=== PATIENT | male | born 1985 | race Caucasian/White ===

== ENCOUNTER 2017-08-23 10:27 | Emergency (ER) | payer SELFPAY ==
--- NOTE | 2017-08-23 11:42 | RAD ---
RADIOGRAPH RIGHT ANKLE 3 VIEWS: Date: 08/23/17 HISTORY: 31-year-old male with persistent post-traumatic right ankle pain after injury 2-3 weeks ago. COMPARISON: No prior imaging studies of the right ankle. FINDINGS: There is a joint effusion. The ankle mortise is symmetrical. No fracture lucency is visualized. Ther e is a 7 x 6 mm well circumscribed ossific fragment at the lateral inferior aspect of the ankle mort ise, overlapping the medial aspect of the distal portion of the lateral malleolus. This is could be an accessory ossicle, but its location is more superior than would be expected for such. It is less likely to be a subacute or old chip fracture, or avulsion fracture that has been displaced. Slightly superior to that, there is a nonspecific tiny, 0.3 x 0.1 cm, calcific densityNo high grade degenera tive changes. IMPRESSION: 1. Right ankle joint effusion. 2. Small ossific fragment at the inferolateral aspect of the ankle mortise. See above comments. 3. Consider noncontrast CT of the ankle if the pain is lateral. POS: SAMANTHA
== END 2017-08-23 12:36 | disposition home or self-care (01) ==
LOC: ERS 10:27
DX: M25.571 Pain in right ankle and joints of right foot (principal); F17.210 Nicotine dependence, cigarettes, uncomplicated

== ENCOUNTER 2020-07-25 18:01 | Emergency (ER) | payer SELFPAY ==
[2020-07-25] MEDS ORDERED: Diazepam 5 MG TAB ONE (18:34)
[2020-07-25] MEDS ORDERED: Diazepam 10 MG/2 ML SYRINGE ONE (18:36)
[2020-07-25 19:08] LABS: ALT (SGPT) 102 U/L (8-55); AST (SGOT) 112 U/L (5-34); Albumin 4.5 g/dL (3.5-5.0); Alkaline Phosphatase 86 U/L (40-110); Anion Gap 24 mmol/L (10-20); BUN (Urea Nitrogen) 5 mg/dL (8.9-20.6); Bilirubin, Total 0.9 mg/dL (0.2-1.2); Calc. Creatinine Clearance 0 mL/min (70-130); Calcium 8.9 mg/dL (7.8-10.44); Carbon Dioxide 13 mmol/L (22-29); Chloride 88 mmol/L (98-107); Estimated GFR-MDRD Greater than 90; Globulin 3.3 g/dL (2.4-3.5); Glucose 95 mg/dL (70-105); Lipase 19 U/L (8-78); Potassium 3.5 mmol/L (3.5-5.1); Protein, Total 7.8 g/dL (6.0-8.3); Sodium 121 mmol/L (136-145)
[2020-07-25 19:09] LABS: Acetaminophen Less than 6.0 mcg/mL (10.0-30.0); Alcohol Less than 10 mg/dL (Less than 10); Salicylate Less than 8.0 mg/dL (15.0-30.0)
[2020-07-25 19:51] LABS: #Eosinphils 0.1 thou/uL (0.0-0.7); #Lymphocytes 1.2 thou/uL (1.20-3.40); #Neutrophils 7.4 thou/uL (1.40-6.50); %Basophils 0.5 % (0.0-1.0); %Eosinophils 0.6 % (0.0-10.0); %Lymphocytes 12.3 % (21.0-51.0); %Monocytes 9.9 % (0.0-10.0); %Neutrophils 76.8 % (42.0-75.0); Hemoglobin 13.8 g/dL (14.0-18.0); Mean Corpuscular HGB CONC 34.8 g/dL (32.0-36.0); Mean Corpuscular Hemoglobin 33.6 pg (27.0-31.0); Mean Corpuscular Volume 96.5 fL (78.0-98.0); Mean Platelet Volume 6.1 fL (7.4-10.4); Platelet Count 203 thou/uL (130-400); RBC Distribution Width 11.2 % (11.5-14.5); Red Blood Cell (RBC) Count 4.11 mill/uL (4.70-6.10); White Blood Cell (WBC) Count 9.6 thou/uL (4.8-10.8)
--- NOTE | 2020-07-27 12:56 | EKG ---
Test Reason : Blood Pressure : / mmHG Vent. Rate : 118 BPM Atrial Rate : 118 BPM P-R Int : 150 ms QRS Dur : 074 ms QT Int : 326 ms P-R-T Axes : 057 015 019 degrees QTc Int : 456 ms Sinus tachycardia Septal infarct , age undetermined Abnormal ECG Confirmed by COLIN GALAN ([id number]), school photograph editor ELIER PEREZ ([id number]) on 07/27/2020 12:56:21 PM Referred By: Confirmed By:COLIN Coles
== END 2020-07-25 19:36 | disposition left against medical advice (07) ==
LOC: ERS 18:01
DX: F10.239 Alcohol dependence with withdrawal, unspecified (principal); R56.9 Unspecified convulsions; R29.2 Abnormal reflex; E87.1 Hypo-osmolality and hyponatremia; R00.0 Tachycardia, unspecified; F41.9 Anxiety disorder, unspecified; F17.210 Nicotine dependence, cigarettes, uncomplicated; Z79.899 Other long term (current) drug therapy; Y90.0 Blood alcohol level of less than 20 mg/100 ml
CPT/HCPCS: 80053; 80307; 83690; 84484; 85025; 93005; 96361; 96374; J3360

== ENCOUNTER 2024-07-21 07:57 | Inpatient (IN) | payer OTHER, SELFPAY ==
[2024-07-21] MEDS ORDERED: Lidocaine 1% w/Epinephrine 1:100K 20 ML VIAL ONE (09:11)
[2024-07-21 10:06] LABS: ALT (SGPT) 61 U/L (8-55); AST (SGOT) 85 U/L (5-34); Alkaline Phosphatase 84 U/L (40-110); Anion Gap 20 mmol/L (10-20); BUN (Urea Nitrogen) 13 mg/dL (8.9-20.6); Bilirubin, Total 0.8 mg/dL (0.2-1.2); Calc. Creatinine Clearance 0 mL/min (70-130); Calcium 8.3 mg/dL (7.8-10.44); Carbon Dioxide 14 mmol/L (22-29); Chloride 74 mmol/L (98-107); Estimated GFR 128; Globulin 3.4 g/dL (2.4-3.5); Glucose 119 mg/dL (70-105); Potassium 3.4 mmol/L (3.5-5.1); Protein, Total 7.4 g/dL (6.0-8.3); Sodium 105 mmol/L (136-145)
[2024-07-21] MEDS ORDERED: Bacitracin 1 PK ONE (10:06)
[2024-07-21 10:48] LABS: #Basophils 0.03 10x3/uL (0.0-0.2); #Eosinphils Less than 0.03 10x3/uL (0.0-0.7); %Basophils 0.2 % (0.0-1.0); %Eosinophils 0.1 % (0.0-10.0); %Lymphocytes 5.3 % (21.0-51.0); %Monocytes 7.4 % (0.0-10.0); %Neutrophils 85.6 % (42.0-75.0); Hematocrit 34.4 % (42.0-52.0); Hemoglobin 13.4 g/dL (14.0-18.0); Mean Corpuscular Hemoglobin 32.6 pg (27.0-31.0); Mean Corpuscular Volume 83.7 fL (78.0-98.0); Mean Platelet Volume 9.2 fL (7.4-10.4); Platelet Count 219 10x3/uL (130-400); Red Blood Cell (RBC) Count 4.11 mill/uL (4.70-6.10)
[2024-07-21 11:06] LABS: Bacteria/HPF None Seen HPF (None Seen); Bilirubin Negative (Negative); Blood, Urine Negative (Negative); CAUTI Indications for Culture Alt mental st,lethar; Clarity Clear (Clear); Glucose, Urine (Dipstick) Normal (Negative); Ketone, Urine 60 mg/dL (Negative); Leukocyte Negative Leu/uL (Negative); Nitrite Negative (Negative); Protein, Urine (Dipstick) Negative (Neg-Trace); RBC/HPF None Seen HPF (0-3); Specific Gravity, Urine 1.043 (1.002-1.036); Squamous Epithelial 0-3 HPF (0-3); Urobilinogen Normal mg/dL (Less than 2); WBC/HPF 0-3 HPF (0-3)
[2024-07-21 11:09] LABS: Urine Culture Reflex No No
[2024-07-21] MEDS ORDERED: Lorazepam 2 MG/ML VIAL IM PRN (11:38)
[2024-07-21] MEDS ORDERED: Bisacodyl 5 MG TAB PO PRN (11:38)
[2024-07-21] MEDS ORDERED: Ondansetron ODT 4 MG TAB PO PRN ×2 (11:38)
[2024-07-21] MEDS ORDERED: Electrolyte Replacement Protocol 1 EACH FS SCH (11:45)
[2024-07-21 13:13] LABS: ALT (SGPT) 59 U/L (8-55); AST (SGOT) 81 U/L (5-34); Alkaline Phosphatase 82 U/L (40-110); Anion Gap 20 mmol/L (10-20); BUN (Urea Nitrogen) 11 mg/dL (8.9-20.6); Bilirubin, Direct 0.3 mg/dL (0.1-0.3); Bilirubin, Total 0.8 mg/dL (0.2-1.2); Calc. Creatinine Clearance 0 mL/min (70-130); Calcium 8.6 mg/dL (7.8-10.44); Carbon Dioxide 14 mmol/L (22-29); Chloride 77 mmol/L (98-107); Estimated GFR 125; Globulin 3.5 g/dL (2.4-3.5); Glucose 103 mg/dL (70-105); Magnesium 1.6 mg/dL (1.6-2.6); Phosphorus 2.3 mg/dL (2.3-4.7); Potassium 3.6 mmol/L (3.5-5.1); Protein, Total 7.5 g/dL (6.0-8.3); Sodium 107 mmol/L (136-145)
[2024-07-21] MEDS ORDERED: Potassium Chloride 20 MEQ TAB ONE ×2 (13:18→13:22)
[2024-07-21] MEDS ORDERED: Thiamine HCl 200 MG/2 ML VIAL ONE (13:19)
[2024-07-21] MEDS ORDERED: Lorazepam 1 MG TAB ONE (13:19)
[2024-07-21] MEDS ORDERED: Lidocaine 4% Patch ONE (13:20)
[2024-07-21] MEDS: Lorazepam 1 MG TAB PO SCH (13:31)
[2024-07-21] MEDS: Thiamine HCl 200 MG/2 ML VIAL SLOW IVP SCH (13:31)
[2024-07-21] MEDS: Lidocaine 4% Patch TD SCH (13:32)
[2024-07-21] MEDS: Potassium Chloride 20 MEQ TAB PO SCH (13:32)
[2024-07-21] MEDS ORDERED: Pantoprazole 40 MG VIAL ONE (13:38)
[2024-07-21] MEDS: Pantoprazole 40 MG VIAL IVP SCH ×2 (13:40→20:26)
[2024-07-21] MEDS ORDERED: chlordiazePOXIDE HCl 25 MG CAP ONE (13:53)
[2024-07-21] MEDS ORDERED: levETIRAcetam 500 MG TAB ONE (13:53)
[2024-07-21] MEDS: chlordiazePOXIDE HCl 25 MG CAP PO SCH (13:57)
[2024-07-21] MEDS: levETIRAcetam 500 MG TAB PO SCH ×2 (13:58→20:26)
[2024-07-21 14:07] LABS: #Basophils Less than 0.03 10x3/uL (0.0-0.2); %Basophils 0.1 % (0.0-1.0); %Eosinophils 0.3 % (0.0-10.0); %Lymphocytes 6.4 % (21.0-51.0); %Monocytes 9.9 % (0.0-10.0); %Neutrophils 82.5 % (42.0-75.0); Hematocrit 34.5 % (42.0-52.0); Hemoglobin 13.2 g/dL (14.0-18.0); Mean Corpuscular HGB CONC 38.3 g/dL (32.0-36.0); Mean Corpuscular Volume 83.7 fL (78.0-98.0); Mean Platelet Volume 8.5 fL (7.4-10.4); Platelet Count 261 10x3/uL (130-400); Red Blood Cell (RBC) Count 4.12 mill/uL (4.70-6.10)
[2024-07-21 14:09] LABS: Troponin I 0.027 ng/mL (< 0.028)
[2024-07-21 15:24] LABS: Amphetamine Not Detected (NotDetected); Barbiturates Screen Not Detected (NotDetected); Benzodiazepine Screen Not Detected (NotDetected); Cocaine Metabolite Screen Not Detected (NotDetected); Methadone Not Detected (NotDetected); Methamphetamine Not Detected (NotDetected); Opiate Screen Not Detected (NotDetected); Oxycodone Screen Not Detected (NotDetected); Phencyclidine (PCP) Not Detected (NotDetected); THC/Cannabinoid Screen Not Detected (NotDetected); Tricyclic Screen Not Detected (NotDetected)
[2024-07-21] MEDS: Magnesium 2 GM/50 ML(in water) 2 GM in Premix 1 BAG IVPB SCH (15:44)
[2024-07-21] MEDS: Sodium Bicarb 50 MEQ/50 ML Abboject 8.4% SYRINGE IVP SCH (15:44)
[2024-07-21 16:11] VITALS: BMI 26.5
[2024-07-21 17:02] LABS: Troponin I 0.024 ng/mL (< 0.028)
[2024-07-21] MEDS: Lorazepam 1 MG TAB PO PRN (18:29)
[2024-07-21 19:16] LABS: Anion Gap 23 mmol/L (10-20); BUN (Urea Nitrogen) 10 mg/dL (8.9-20.6); Calc. Creatinine Clearance 190 mL/min (70-130); Calcium 8.9 mg/dL (7.8-10.44); Carbon Dioxide 16 mmol/L (22-29); Chloride 77 mmol/L (98-107); Estimated GFR 125; Glucose 84 mg/dL (70-105); Potassium 3.8 mmol/L (3.5-5.1); Sodium 112 mmol/L (136-145)
[2024-07-21] MEDS: Transdermal Patch Removal TOP SCH (20:28)
[2024-07-21] MEDS: Dextrose 5% in Water 1,000 ML IV SCH ×2 (20:28→23:38)
[2024-07-21] MEDS ORDERED: Mag-Al 1200 mg/1200 mg/30 ML UDCUP PO PRN (20:57)
[2024-07-21] MEDS ORDERED: levETIRAcetam 500 MG TAB PO SCH (21:00)
[2024-07-21] MEDS: Dexmedetomidine In 0.9 % NaCl 100 ML IVPB SCH (21:29)
[2024-07-21] MEDS: Nicotine 14 MG PATCH TD SCH (21:29)
[2024-07-21] MEDS: Calcium Carbonate 500 MG ChewTAB PO PRN (21:29)
[2024-07-21 21:47] LABS: Anion Gap 22 mmol/L (10-20); BUN (Urea Nitrogen) 10 mg/dL (8.9-20.6); Calc. Creatinine Clearance 184 mL/min (70-130); Carbon Dioxide 17 mmol/L (22-29); Chloride 80 mmol/L (98-107); Estimated GFR 124; Glucose 90 mg/dL (70-105); Potassium 3.7 mmol/L (3.5-5.1); Sodium 115 mmol/L (136-145)
[2024-07-21] MEDS: Nitroglycerin 0.4 MG TAB (25 Tab Bottle) SL SCH (23:24)
[2024-07-21] MEDS: Aspirin Chewable 81 MG TAB PO SCH (23:37)
[2024-07-21] MEDS: Nitroglycerin 0.4 MG TAB (25 Tab Bottle) ONE (23:39)
[2024-07-21] MEDS: Aspirin 81 mg Enteric Coated Tablet ONE (23:39)
[2024-07-21] MEDS: Morphine 2 MG/ML VIAL SLOW IVP SCH (23:52)
[2024-07-22] MEDS: Nitroglycerin 0.4 MG TAB (25 Tab Bottle) SL SCH (00:30)
[2024-07-22] MEDS: Lidocaine 2% Viscous Solution 10 ML, Aluminum & Magnesium Hydroxide 30 ML SSW SCH (00:30)
[2024-07-22 02:34] LABS: BUN (Urea Nitrogen) 9 mg/dL (8.9-20.6); Carbon Dioxide 18 mmol/L (22-29); Chloride 80 mmol/L (98-107); Potassium 3.6 mmol/L (3.5-5.1); Sodium 116 mmol/L (136-145)
[2024-07-22 02:35] LABS: Calc. Creatinine Clearance 184 mL/min (70-130); Calcium 9.1 mg/dL (7.6-10.4); Estimated GFR 124; Glucose 96 mg/dL (70-105)
[2024-07-22 02:36] LABS: Magnesium 2.5 mg/dL (1.6-2.6)
[2024-07-22 02:38] LABS: Anion Gap 22 mmol/L (10-20)
[2024-07-22 06:12] LABS: #Basophils Less than 0.03 10x3/uL (0.0-0.2); #Eosinphils Less than 0.03 10x3/uL (0.0-0.7); %Basophils 0.1 % (0.0-1.0); %Eosinophils 0.1 % (0.0-10.0); %Lymphocytes 8.6 % (21.0-51.0); %Monocytes 11.5 % (0.0-10.0); Hemoglobin 13.1 g/dL (14.0-18.0); Mean Corpuscular HGB CONC 37.4 g/dL (32.0-36.0); Mean Corpuscular Hemoglobin 32.3 pg (27.0-31.0); Mean Corpuscular Volume 86.2 fL (78.0-98.0); Mean Platelet Volume 8.6 fL (7.4-10.4); Platelet Count 209 10x3/uL (130-400); RBC Distribution Width 12.3 % (11.5-14.5); Red Blood Cell (RBC) Count 4.06 mill/uL (4.70-6.10)
[2024-07-22 06:26] LABS: ALT (SGPT) 49 U/L (8-55); AST (SGOT) 65 U/L (5-34); Alkaline Phosphatase 80 U/L (40-110); Anion Gap 18 mmol/L (10-20); BUN (Urea Nitrogen) 9 mg/dL (8.9-20.6); Bilirubin, Total 0.8 mg/dL (0.2-1.2); Calc. Creatinine Clearance 196 mL/min (70-130); Calcium 9.1 mg/dL (7.8-10.44); Carbon Dioxide 20 mmol/L (22-29); Chloride 82 mmol/L (98-107); Estimated GFR 126; Globulin 3.6 g/dL (2.4-3.5); Glucose 113 mg/dL (70-105); Potassium 3.6 mmol/L (3.5-5.1); Protein, Total 7.6 g/dL (6.0-8.3); Sodium 116 mmol/L (136-145)
[2024-07-22] MEDS: Multivit, Therapeutic 1 TAB PO SCH (09:07)
[2024-07-22] MEDS: Escitalopram Oxalate 20 mg Tablet PO SCH (09:07)
[2024-07-22] MEDS: Lisinopril 20 MG TAB PO SCH (09:07)
[2024-07-22] MEDS: Lidocaine 4% Patch TD SCH (09:07)
[2024-07-22] MEDS: Desmopressin Acetate 4 mcg/ml AMPUL IVP SCH (09:07)
[2024-07-22] MEDS: Folic Acid 1 MG TAB PO SCH (09:07)
[2024-07-22] MEDS ORDERED: Lorazepam 1 MG TAB PO PRN (11:38)
[2024-07-22] MEDS: Lactated Ringer's 500 ML IV SCH ×2 (12:22→12:55)
[2024-07-22] MEDS: chlordiazePOXIDE HCl 25 MG CAP PO SCH (12:46)
[2024-07-22 13:05] LABS: Hematocrit 33.1 % (42.0-52.0); Hemoglobin 12.1 g/dL (14.0-18.0)
[2024-07-22 13:25] LABS: Troponin I 0.019 ng/mL (< 0.028)
[2024-07-22 16:59] LABS: Anion Gap 18 mmol/L (10-20); BUN (Urea Nitrogen) 15 mg/dL (8.9-20.6); Calc. Creatinine Clearance 155 mL/min (70-130); Carbon Dioxide 19 mmol/L (22-29); Chloride 81 mmol/L (98-107); Estimated GFR 117; Glucose 105 mg/dL (70-105); Potassium 3.5 mmol/L (3.5-5.1); Sodium 114 mmol/L (136-145)
[2024-07-22] MEDS: Acetaminophen 325 MG TAB PO PRN (21:12)
[2024-07-22] MEDS: Potassium Chloride 20 MEQ TAB PO SCH (23:25)
[2024-07-22] MEDS: Ketorolac Tromethamine 30 MG (1 mL) VIAL IVP SCH (23:38)
[2024-07-22 23:40] LABS: Anion Gap 15 mmol/L (10-20); BUN (Urea Nitrogen) 15 mg/dL (8.9-20.6); Calc. Creatinine Clearance 173 mL/min (70-130); Calcium 8.7 mg/dL (7.8-10.44); Carbon Dioxide 21 mmol/L (22-29); Chloride 80 mmol/L (98-107); Estimated GFR 121; Glucose 92 mg/dL (70-105); Sodium 113 mmol/L (136-145)
[2024-07-23 09:26] LABS: #Basophils 0.04 10x3/uL (0.0-0.2); %Basophils 0.4 % (0.0-1.0); %Eosinophils 0.3 % (0.0-10.0); %Lymphocytes 11.6 % (21.0-51.0); %Monocytes 12.8 % (0.0-10.0); %Neutrophils 73.9 % (42.0-75.0); Hematocrit 33.2 % (42.0-52.0); Hemoglobin 11.5 g/dL (14.0-18.0); Mean Corpuscular HGB CONC 34.6 g/dL (32.0-36.0); Mean Corpuscular Hemoglobin 32.7 pg (27.0-31.0); Mean Corpuscular Volume 94.3 fL (78.0-98.0); Mean Platelet Volume 8.7 fL (7.4-10.4); Platelet Count 201 10x3/uL (130-400); RBC Distribution Width 12.5 % (11.5-14.5); Red Blood Cell (RBC) Count 3.52 mill/uL (4.70-6.10)
[2024-07-23 09:46] LABS: Alkaline Phosphatase 86 U/L (40-110); Anion Gap 18 mmol/L (10-20); BUN (Urea Nitrogen) 17 mg/dL (8.9-20.6); Bilirubin, Total 0.6 mg/dL (0.2-1.2); Critical Call Chemistry NUR.BMD1; Phosphorus 2.8 mg/dL (2.3-4.7)
[2024-07-23 10:15] LABS: Albumin 3.7 g/dL (3.5-5.0); Calcium 9.2 mg/dL (7.8-10.44); Carbon Dioxide 18 mmol/L (22-29); Chloride 86 mmol/L (98-107); Globulin 3.5 g/dL (2.4-3.5); Glucose 103 mg/dL (70-105); Potassium 3.5 mmol/L (3.5-5.1); Protein, Total 7.2 g/dL (6.0-8.3)
[2024-07-23 10:16] LABS: ALT (SGPT) 43 U/L (8-55); AST (SGOT) 52 U/L (5-34); Calc. Creatinine Clearance 180 mL/min (70-130); Estimated GFR 124; Magnesium 2.3 mg/dL (1.6-2.6)
[2024-07-23 10:33] LABS: Sodium 118 mmol/L (136-145)
[2024-07-23] MEDS ORDERED: Lorazepam 0.5 MG TAB PO SCH (11:45)
[2024-07-23] MEDS: Potassium Chloride 20 MEQ TAB PO SCH (12:52)
[2024-07-23] MEDS: chlordiazePOXIDE HCl 25 MG CAP PO SCH (12:53)
[2024-07-23] MEDS: Lorazepam 1 MG TAB PO PRN (16:52)
[2024-07-23 18:25] LABS: Potassium 3.9 mmol/L (3.5-5.1); Sodium 119 mmol/L (136-145)
[2024-07-23] MEDS: Guaifenesin DM 100-10/5 ML UDCUP PO PRN (21:09)
[2024-07-24] MEDS: Lorazepam 2 MG/ML VIAL SLOW IVP SCH (07:20)
[2024-07-24 11:01] LABS: #Basophils 0.07 10x3/uL (0.0-0.2); %Basophils 0.8 % (0.0-1.0); %Eosinophils 0.5 % (0.0-10.0); %Lymphocytes 14.6 % (21.0-51.0); %Neutrophils 64.9 % (42.0-75.0); Hemoglobin 12.4 g/dL (14.0-18.0); Mean Corpuscular HGB CONC 36.5 g/dL (32.0-36.0); Mean Corpuscular Hemoglobin 32.5 pg (27.0-31.0); Mean Platelet Volume 8.5 fL (7.4-10.4); Platelet Count 270 10x3/uL (130-400); RBC Distribution Width 12.5 % (11.5-14.5); Red Blood Cell (RBC) Count 3.82 mill/uL (4.70-6.10)
[2024-07-24] MEDS ORDERED: Lorazepam 0.5 MG TAB PO PRN (11:38)
[2024-07-24 12:01] LABS: ALT (SGPT) 42 U/L (8-55); AST (SGOT) 54 U/L (5-34); Albumin 3.9 g/dL (3.5-5.0); Alkaline Phosphatase 90 U/L (40-110); Anion Gap 17 mmol/L (10-20); BUN (Urea Nitrogen) 9 mg/dL (8.9-20.6); Bilirubin, Total 0.4 mg/dL (0.2-1.2); Calc. Creatinine Clearance 149 mL/min (70-130); Calcium 9.7 mg/dL (7.8-10.44); Carbon Dioxide 18 mmol/L (22-29); Chloride 93 mmol/L (98-107); Estimated GFR 124; Globulin 4.1 g/dL (2.4-3.5); Glucose 102 mg/dL (70-105); Potassium 4.1 mmol/L (3.5-5.1); Sodium 124 mmol/L (136-145)
[2024-07-24] MEDS: Thiamine 100 MG TAB PO SCH (12:20)
[2024-07-24] MEDS: chlordiazePOXIDE HCl 25 MG CAP PO SCH (21:47)
[2024-07-25 07:22] LABS: #Basophils 0.08 10x3/uL (0.0-0.2); %Eosinophils 1.2 % (0.0-10.0); %Lymphocytes 18.6 % (21.0-51.0); %Monocytes 13.9 % (0.0-10.0); Hematocrit 32.4 % (42.0-52.0); Hemoglobin 11.1 g/dL (14.0-18.0); Mean Corpuscular HGB CONC 34.3 g/dL (32.0-36.0); Mean Corpuscular Hemoglobin 32.3 pg (27.0-31.0); Mean Corpuscular Volume 94.2 fL (78.0-98.0); Mean Platelet Volume 8.3 fL (7.4-10.4); Platelet Count 309 10x3/uL (130-400); RBC Distribution Width 12.7 % (11.5-14.5); Red Blood Cell (RBC) Count 3.44 mill/uL (4.70-6.10)
[2024-07-25 07:53] LABS: ALT (SGPT) 37 U/L (8-55); AST (SGOT) 43 U/L (5-34); Albumin 3.6 g/dL (3.5-5.0); Alkaline Phosphatase 83 U/L (40-110); Anion Gap 16 mmol/L (10-20); BUN (Urea Nitrogen) 8 mg/dL (8.9-20.6); Bilirubin, Total 0.3 mg/dL (0.2-1.2); Calc. Creatinine Clearance 149 mL/min (70-130); Calcium 9.4 mg/dL (7.8-10.44); Carbon Dioxide 19 mmol/L (22-29); Chloride 94 mmol/L (98-107); Estimated GFR 124; Globulin 3.8 g/dL (2.4-3.5); Glucose 104 mg/dL (70-105); Potassium 3.6 mmol/L (3.5-5.1); Protein, Total 7.4 g/dL (6.0-8.3); Sodium 125 mmol/L (136-145)
[2024-07-26 06:04] LABS: #Basophils 0.07 10x3/uL (0.0-0.2); %Basophils 1.1 % (0.0-1.0); %Eosinophils 1.5 % (0.0-10.0); %Lymphocytes 22.3 % (21.0-51.0); %Monocytes 15.8 % (0.0-10.0); %Neutrophils 58.1 % (42.0-75.0); Hemoglobin 10.1 g/dL (14.0-18.0); Mean Corpuscular HGB CONC 33.7 g/dL (32.0-36.0); Mean Corpuscular Hemoglobin 32.2 pg (27.0-31.0); Mean Corpuscular Volume 95.5 fL (78.0-98.0); Mean Platelet Volume 7.9 fL (7.4-10.4); Platelet Count 293 10x3/uL (130-400); RBC Distribution Width 12.8 % (11.5-14.5); Red Blood Cell (RBC) Count 3.14 mill/uL (4.70-6.10)
[2024-07-26 06:18] LABS: ALT (SGPT) 31 U/L (8-55); AST (SGOT) 35 U/L (5-34); Albumin 3.1 g/dL (3.5-5.0); Alkaline Phosphatase 73 U/L (40-110); Anion Gap 15 mmol/L (10-20); BUN (Urea Nitrogen) 9 mg/dL (8.9-20.6); Bilirubin, Total 0.3 mg/dL (0.2-1.2); Calc. Creatinine Clearance 147 mL/min (70-130); Calcium 8.9 mg/dL (7.8-10.44); Carbon Dioxide 20 mmol/L (22-29); Chloride 98 mmol/L (98-107); Estimated GFR 123; Globulin 3.4 g/dL (2.4-3.5); Glucose 100 mg/dL (70-105); Potassium 3.6 mmol/L (3.5-5.1); Protein, Total 6.5 g/dL (6.0-8.3); Sodium 129 mmol/L (136-145)
[2024-07-26] MEDS: Multivit, Therapeutic 1 TAB PO SCH (08:19)
[2024-07-26 12:30] VITALS: BP 115/69; TEMP 98
[2024-07-26] MEDS ORDERED: Sodium Chloride 1 GM TAB PO SCH (15:00)
== END 2024-07-26 12:05 | disposition home or self-care (01) | DRG 644 ==
LOC: ERS 07:57 → ERHOLD 11:02 → IMCU/EMU 14:58 → 2NO 07-24 15:47
PROVIDERS: ADMIT Student in an Organized Health Care Education/Training Program; ATTEND Student in an Organized Health Care Education/Training Program
PROC: 0HQ0XZZ Repair Scalp Skin, External Approach (ICD-10-PCS; principal; 2024-07-21)
DX: E22.2 Syndrome of inappropriate secretion of antidiuretic hormone (principal); E87.20 Acidosis, unspecified; F10.139 Alcohol abuse with withdrawal, unspecified; G40.909 Epilepsy, unspecified, not intractable, without status epilepticus; F41.9 Anxiety disorder, unspecified; K21.9 Gastro-esophageal reflux disease without esophagitis; E87.8 Other disorders of electrolyte and fluid balance, not elsewhere classified; D72.829 Elevated white blood cell count, unspecified; F32.9 Major depressive disorder, single episode, unspecified; F10.129 Alcohol abuse with intoxication, unspecified; W10.9XXA Fall (on) (from) unspecified stairs and steps, initial encounter; E87.6 Hypokalemia; S01.81XA Laceration without foreign body of other part of head, initial encounter; I95.9 Hypotension, unspecified; Z79.899 Other long term (current) drug therapy; Z79.891 Long term (current) use of opiate analgesic; Y93.89 Activity, other specified; Y92.89 Other specified places as the place of occurrence of the external cause; N18.1 Chronic kidney disease, stage 1; D64.9 Anemia, unspecified; I12.9 Hypertensive chronic kidney disease with stage 1 through stage 4 chronic kidney disease, or unspecified chronic kidney disease; Z71.41 Alcohol abuse counseling and surveillance of alcoholic; Y90.3 Blood alcohol level of 60-79 mg/100 ml
CPT/HCPCS: 12014; 36415; 71045; 80053; 80306; 80307; 81001; 82010; 82248; 83735; 83880; 83930; 83935; 84100; 84300; 84484; 85025; 93005; 93010; J1885; J2272; J2470; J2597; J3411; J3475; J7070; J7120